=== PATIENT | female | born 1985 | race Caucasian/White ===

== ENCOUNTER 2021-02-25 01:26 | Emergency (ER) | payer SELFPAY ==
[~2021-02-25] VITALS: Ht 167.6 cm; Wt 88.6 kg
[2021-02-25 01:54] LABS: BILIRUBIN,URINE NEGATIVE (NEG); CLARITY,URINE CLEAR; COLOR,URINE YELLOW; NITRITE,URINE NEGATIVE (NEG); PH,URINE 5.5 (<5.0-8.0); PROTEIN,URINE NEGATIVE (NEG-TRACE)
[2021-02-25 02:02] LABS: BACTERIA,URINE FEW /HPF (0-FEW); RBC,URINE TNTC /HPF (0-2)
--- NOTE | 2021-02-25 02:39 | PHYS DOC ---
Past Medical History Past Medical History: Depression Past Surgical History: Appendectomy, Cholecystectomy, , Gastric Bypass, Hysterectomy, Other Additional Past Surgical Histo: hernia repair X 4 Smoking Status: Current Every Day Smoker Alcohol Use: None General Adult EDM: Chief Complaint: FLANK PAIN HPI: HPI: Patient is a 36 year old female past medical history of depression presents with a chief complaint of flank pain. Patient states flank pain started yesterday morning approximately 0800 hours. His pain is located in the left flank and radiates to the suprapubic region. Patient states she has associated nausea and vomiting. Patient states she has also noticed some blood in her urine. Patient has tried she has self treated at home with ibuprofen and Ultram with no relief. Patient denies any injuries. Review of Systems: Review of Systems: Review of systems: Constitutional symptoms- No fever, no chills. Eyes- No Discharge, No Visual Loss Respiratory symptoms- No shortness of breath, No wheezing, No Dyspnea on Exertion Cardiovascular Systems; No chest pain, No Palpitations, No syncope Gastrointestinal symptoms: NO abdominal pain, Positive nausea, Positive vomiting no diarrhea. Genitourinary symptoms: Positive hematuria positive flank pain Musculoskeletal symptoms: No back pain No extremity pain. NEUROLOGICAL Symptoms: No headache, no generalized weakness; No focal Weakness Heart Score: C/O Chest Pain: N/A Risk Factors: Risk Factors: DM, Current or recent (<one month) smoker, HTN, HLP, family history of CAD, obesity. Risk Scores: Score 0 - 3: 2.5% MACE over next 6 weeks - Discharge Home Score 4 - 6: 20.3% MACE over next 6 weeks - Admit for Clinical Observation Score 7 - 10: 72.7% MACE over next 6 weeks - Early Invasive Strategies Allergies: Allergies: Allergies Coded Allergies Type Severity Reaction Last Updated Verified cephalexin Allergy Unknown Hives 02/25/21 Yes ketorolac Adverse Reaction Unknown Nausea 02/25/21 Yes Physical Exam: PE: General: alert, no acute distress. Skin: warm, dry and intact. Head:: Normocephalic, atraumatic. Neck: Trachea midline. Eyes: EOMI, Normal conjunctiva, No drainage CARDIOVASCULAR: Regular rate and rhythm RESPIRATORY: No respiratory distress Back: Full range of motion., C/O pain/tenderness left flank MUSCULOSKELETAL: Full range of motion of bilateral upper and lower extremities. GASTROINTESTINAL: Abdomen soft without rebound or guarding. NEUROLOGICAL: Alert and noted to person, place and time. No neurological deficits observed Psychiatric: Cooperative. Normal judgment Current Patient Data: Labs: Laboratory Tests Test 02/25/21 01:30 02/25/21 01:37 Urine Collection Type Unknown Urine Color Yellow Urine Clarity Clear Urine pH 5.5 (<5.0-8.0) Urine Specific [place] 1.025 (1.000-1.030) Urine Protein Negative mg/dL (NEG-TRACE) Urine Glucose (UA) Negative mg/dL (NEG) Urine Ketones (Stick) Negative mg/dL (NEG) Urine Blood Large (NEG) Urine Nitrite Negative (NEG) Urine Bilirubin Negative (NEG) Urine Urobilinogen Dipstick 1.0 mg/dL (0.2 mg/dL) Urine Leukocyte Esterase Negative (NEG) Urine RBC Tntc /HPF (0-2) Urine WBC 1-4 /HPF (0-4) Urine Squamous Epithelial Cells Mod /LPF Urine Bacteria Few /HPF (0-FEW) Urine Mucus Mod /LPF POC Urine HCG, Qualitative Hcg negative (Negative) Vital Signs: Vital Signs Date Time Temp Pulse Resp B/P (MAP) Pulse Ox O2 Delivery O2 Flow Rate FiO2 02/25/21 01:35 98.9 91 18 147/82 (103) 100 Room Air 98.9 EKG: EKG: [] Radiology/Procedures: Radiology/Procedures: [] Impression: FINDINGS: Abdominal aorta is not aneurysmal. Postcholecystectomy changes. Limited assessment of pancreas without contrast. Postoperative appearance of the stomach with bypass. Spleen mildly prominent in size. Urinary bladder is partially distended. No left-sided radiopaque obstructive ureter stone. Mild prominence of right extrarenal pelvis. No definite right- sided radiopaque obstructive ureter stone. There is a couple calcifications in the pelvis which could be from a phlebolith Surgical clips right lower quadrant which could be from post appendectomy changes. There are some scattered mildly prominent lymph nodes in the mesentery Couple of minimally prominent loops of small bowel the left-sided the abdomen without high-grade transition point to suggest obstruction. Mild degenerative changes the spine. IMPRESSION: * Distention of the right extrarenal pelvis without a definite radiopaque obstructive ureter stone. * There is a couple of mildly prominent loops of small bowel the left-sided the abdomen which could be from phase of peristalsis without a high-grade transition point to suggest obstruction. Course & Med Decision Making: Course & Med Decision Making Pertinent Labs and Imaging studies reviewed. (See chart for details) [] Sahra Disclaimer: Sahra Disclaimer: This electronic medical record was generated, in whole or in part, using a voice recognition dictation system. Departure Departure Impression: Primary Impression: Flank pain Additional Impression: Hematuria Disposition: HOME / SELF CARE / HOMELESS Condition: STABLE Referrals: NO PCP (PCP) Patient Instructions: Flank Pain, Hematuria, Adult Scripts Hydrocodone/Acetaminophen (Hydrocodone-Acetamin 5-325 mg) 1 Each Tablet 1 EACH PO Q4-6HRS, #20 TAB Prov: VAIBHAV SPENCER DO 02/25/21 VAIBHAV SPENCER DO February 25, 2021 02:39
[2021-02-25] MEDS ORDERED: fentaNYL PF VIAL 100 MCG/2 ML VIAL IVP ONE ×2 (02:45→04:00)
[2021-02-25] MEDS ORDERED: IV NORMAL SALINE 1000ML BAG 1,000 ML IV ONE (02:45)
--- NOTE | 2021-02-25 03:21 | RAD ---
INDICATION: Reason: LEFT FLANK PAIN / Spl. Instructions: / History: . COMPARISON: February 2021 TECHNIQUE: Axial CT images obtained through the abdomen and pelvis without contrast. One or more of the following individualized dose reduction techniques were utilized for this examinat ion: 1. Automated exposure control; 2. Adjustment of the mA and/or kV according to patient size; 3 . Use of iterative reconstruction technique. FINDINGS: Abdominal aorta is not aneurysmal. Postcholecystectomy changes. Limited assessment of pancreas without contrast. Postoperative appearance of the stomach with bypass. Spleen mildly prominent in size. Urinary bladder is partially distended. No left-sided radiopaque obstructive ureter stone. Mild promi nence of right extrarenal pelvis. No definite right-sided radiopaque obstructive ureter stone. There is a couple calcifications in the pelvis which could be from a phlebolith Surgical clips right lower quadrant which could be from post appendectomy changes. There are some sca ttered mildly prominent lymph nodes in the mesentery Couple of minimally prominent loops of small bowel the left-sided the abdomen without high-grade wu sition point to suggest obstruction. Mild degenerative changes the spine. IMPRESSION: * Distention of the right extrarenal pelvis without a definite radiopaque obstructive ureter stone. * There is a couple of mildly prominent loops of small bowel the left-sided the abdomen which could be from phase of peristalsis without a high-grade transition point to suggest obstruction. Electronically signed by: Angel Zepeda MD (02/25/2021 3:19 AM) [id number]
[2021-02-25 03:24] LABS: BASO # 0.1 x10^3/uL (0.0-0.2); BASO % 1 % (0-3); EOS # 0.1 x10^3/uL (0.0-0.7); EOS % 1 % (0-3); HEMATOCRIT 36.4 % (36.0-47.0); HEMOGLOBIN 12.5 g/dL (12.0-15.5); LYMPH # 2.1 x10^3/uL (1.0-4.8); LYMPH % 35 % (24-48); MEAN CORPUSCULAR HEMOGLOBIN 30 pg (25-35); MEAN CORPUSCULAR HGB CONC 34 g/dL (31-37); MEAN CORPUSCULAR VOLUME 87 fL (79-100); MONO # 0.6 x10^3/uL (0.0-1.1); MONO % 9 % (0-9); NEUT # 3.3 x10^3/uL (1.8-7.7); NEUT % 54 % (31-73); PLATELET COUNT 196 x10^3/uL (140-400); RED BLOOD COUNT 4.17 x10^6/uL (3.50-5.40); RED CELL DISTRIBUTION WIDTH 14.8 % (11.5-14.5); WHITE BLOOD COUNT 6.2 x10^3/uL (4.0-11.0)
[2021-02-25] MEDS ORDERED: HYDR-2759 PO (03:27)
[2021-02-25 03:33] LABS: CALCIUM 8.5 mg/dL (8.5-10.1); GFR 62.1; POTASSIUM 3.2 mmol/L (3.5-5.1)
[2021-02-25 03:39] LABS: ALBUMIN 3.7 g/dL (3.4-5.0); ALBUMIN/GLOBULIN RATIO 1.2 (1.0-1.7); TOTAL BILIRUBIN 0.3 mg/dL (0.2-1.0); TOTAL PROTEIN 6.8 g/dL (6.4-8.2)
[2021-02-25 04:12] VITALS: BP 132/82
== END 2021-02-25 04:15 | disposition home or self-care (01) ==
LOC: ER 01:26
DX: R10.32 Left lower quadrant pain (principal); R31.9 Hematuria, unspecified; R11.2 Nausea with vomiting, unspecified; Z90.89 Acquired absence of other organs; Z90.49 Acquired absence of other specified parts of digestive tract; Z90.710 Acquired absence of both cervix and uterus; Z98.84 Bariatric surgery status; F17.200 Nicotine dependence, unspecified, uncomplicated; Z88.1 Allergy status to other antibiotic agents; Z88.6 Allergy status to analgesic agent
CPT/HCPCS: 36415; 74176; 80053; 81001; 81025; 83690; 85025; 96361; 96374; 96376; 99285; J3010; J7030; 96375